=== PATIENT | male | born 1965 | race Caucasian/White ===

== ENCOUNTER 2025-03-21 14:37 | Observation (INO) | payer OTHER, SELFPAY ==
[2025-03-21] VITALS (33 sets, daily range): BP systolic 104–167; BP diastolic 69–97; PULSE 76–97; RESP 14–31; TEMP 36.8–37.9; O2SAT 91–99
--- NOTE | ~2025-03-21 | XR_ITS ---
EXAMINATION: XR chest 2V Exam Date/Time: 03/21/2025 19:05 CDT HISTORY: uri, fever Comparison: 07/20/2015. RESULT: Lines, tubes, and devices: None. Lungs and pleura: Ill-defined reticular opacities in the upper right lung. Cardiomediastinal silhouette: Stable. Other: No acute osseous or upper abdominal finding. IMPRESSION: Segmental focus of ill-defined lung right upper lung opacities, may represent infection, including at ypical variants Reviewed, dictated and finalized at location K. IMPRESSION: Segmental focus of ill-defined lung right upper lung opacities, may represent i nfection, including atypical variants
--- NOTE | 2025-03-21 19:25 | PC.NURSE ---
Report received from MARY Araiza. Assumed care of patient at this time.
[2025-03-21] MEDS: ACETAMINOPHEN 500 MG TABLET 1000 MG PO (19:39)
[2025-03-21] MEDS: SODIUM CHLORIDE 0.9% IV 1,000 ML 999 ML IV CONT ×2 (19:39→20:23)
[2025-03-21 19:46] LABS: Basophils Percent Auto 0.3 % (0.2-1.2); Hematocrit 38.1 % (42.0-52.0); Hemoglobin 12.5 g/dL (14.0-18.0); Immature Granulocyte Absolute 0.05 K/mm3 (0.00-0.031); Immature Granulocyte Percent A 0.4 % (0-0.5); Lymphocytes Percent Auto 10.7 % (18.3-44.2); Mean Corpuscular HGB Conc 32.8 g/dl (32-36); Mean Corpuscular Hemoglobin 27.3 pg (26-34); Mean Corpuscular Volume 83.2 fl (80-100); Monocytes Absolute Auto 1.4 K/mm3 (0.1-0.6); Monocytes Percent Auto 12.2 % (2.6-8.5); Neutrophils Absolute Auto 8.5 K/mm3 (1.3-6.7); Neutrophils Percent Auto 76.4 % (45.5-73.1); Platelet Count Result 255 k/mm3 (150-375); Red Blood Count 4.58 M/mm3 (4.6-6.20); Red Cell Distribution Width 12.6 % (11.5-14.5); White Blood Count 11.2 K/mm3 (4.5-10.0)
--- NOTE | 2025-03-21 19:50 | ED.GENADULT ---
HPI - General Adult General Chief complaint: Unspecified <Aleena Lu PA-C - Last Filed: 03/21/25 23:04> Stated complaint: Feeling Sick Since Sunday <HANH Lam Last Filed: 03/21/25 23:04> Time Seen by Provider: 03/21/25 18:34 <HANH Lam Last Filed: 03/21/25 23:04> Source: patient <HANH Lam Last Filed: 03/21/25 23:04> Mode of arrival: ambulatory <HANH Lam Last Filed: 03/21/25 23:04> Limitations: no limitations <HANH Lam Last Filed: 03/21/25 23:04> History of Present Illness HPI narrative: Patient is a 59-year-old male, with PMH of DM, HTN, HLD, who presents the ED with report of not feeling well. Patient reports he has not felt well over the past several days. Reports he became overheated at work on Sunday. Does report that he was drinking plenty of water and Gatorade at that time. States he has felt very weak, fatigued, overall no energy or appetite. Has had cough, congestion, rhinorrhea, intermittent fevers. Denies shortness of breath or chest pain. Denies focal numbness or weakness. Denies nausea, vomiting <HANH Lam Last Filed: 03/21/25 23:04> Related Data Home medications: Home Medications ?Medication ?Instructions ?Recorded ?Confirmed ?Last Taken ?Type dapagliflozin propanediol 10 mg 10 mg PO DAILY 03/22/25 03/22/25 Unknown History tablet (Farxiga) ergocalciferol (vitamin D2) 1,250 1,250 mcg PO WEEKLY 03/22/25 03/22/25 Unknown History mcg (50,000 unit) capsule lisinopril 20 1 tablet PO DAILY 03/22/25 03/22/25 Unknown History mg-hydrochlorothiazide 25 mg tablet rosuvastatin 10 mg tablet 10 mg PO DAILY 03/22/25 03/22/25 Unknown History sitagliptin phos 100 mg-metformin 1 tablet PO DAILY 03/22/25 03/22/25 Unknown History ER 1,000 mg tablet,extend rel 24h mp (Janumet XR) <Aleena Lu PA-C - Last Filed: 03/21/25 23:04> Allergies/adverse reactions: Allergies Allergy/AdvReac Type Severity Reaction Status Date / Time No Known Allergies Allergy Verified 03/22/25 00:15 <Aleena Lu PA-C - Last Filed: 03/21/25 23:04> Review of Systems Review of Systems: All systems reviewed & are unremarkable except as noted in HPI. <Aleena Lu PA-C - Last Filed: 03/21/25 23:04> All systems reviewed & are unremarkable except as noted in HPI and below <Aleena Lu PA-C - Last Filed: 03/21/25 23:04> [facility] Past Medical History Medical History: Medical History (Updated 03/22/25 @ 04:19 by Marcia Coles PA-C) Type 2 diabetes mellitus Dyslipidemia Hypertension <Aleena Lu PA-C - Last Filed: 03/21/25 23:04> Surgical History Surgical History: Surgical History (Updated 03/22/25 @ 04:17 by Marcia Coles PA-C) History of eye surgery corrective eye surgery at age for <Aleena Lu PA-C - Last Filed: 03/21/25 23:04> Family History Family History: Family History Sibling Diabetes mellitus Sibling Diabetes mellitus Mother Diabetes mellitus Father Colon cancer Dementia <Aleena Lu PA-C - Last Filed: 03/21/25 23:04> Social History Social History: Social History (Updated 03/22/25 @ 06:33 by Marcia Coles PA-C) Social History: Surrogate medical decision maker: Lalita Jyotsna, spouse. Code status: Full code. Smoking status: Never smoker Alcohol intake: current Drinks per week: 6 Substance use: never Do You Feel Safe in your Home?: Yes Lack of Transportation: No Lack of Food: Never True Current Housing: I Have Housing Concerned About Future Housing: No Difficulty Paying Gas/Electric Bills: No Difficulty Paying for Meds: No Currently Unemployed: No Education: High School Diploma/GED Difficulty w/ Childcare or Family Care: No Additional living arrangements comments: Lives with spouse in [place]. Additional occupation/education comments: Works for the [employer] district. Spiritual care concerns: No <Aleena Lu PA-C - Last Filed: 03/21/25 23:04> Exam Narrative: GENERAL: Appears older than stated age, obese with BMI of 34.4, non-toxic, in no acute distress. HEAD: Normocephalic, atraumatic. RESPIRATORY: Airway patent, respirations nonlabored. Clear to auscultation bilaterally, no rales, rhonchi, wheezing. No significant focal lung sounds. CARDIOVASCULAR: Regular rate and rhythm without murmurs, rubs, or gallops. ABDOMINAL: Soft, nontender, nondistended. Normoactive BS. MUSCULOSKELETAL: Moves all extremities. No gross deformities. No peripheral edema. SKIN: Warm, dry, normal color. NEURO: A&O X3. Speech clear. Cranial nerves II-XII grossly intact. Steady gait. No ataxic movements. No focal deficits. PSYCHIATRIC: Appropriate mood and affect. Normal interaction. <Aleena Lu PA-C - Last Filed: 03/21/25 23:04> Course EMBALMER ASSISTANT/PA Physician Supervision Informed this patient had been admitted. I had heard PA discuss patient directly with the admitting PA. was available for consultation while patient was in the emergency department but did not physically examine them and was not directly involved in care otherwise. <Rebecca Garcia MD - Last Filed: 03/22/25 18:23> Vital Signs Vital signs: Vital Signs Temperature 100.2 F H 03/21/25 14:51 Pulse Rate 97 03/21/25 14:51 Respiratory Rate 16 03/21/25 14:51 Blood Pressure 115/74 03/21/25 14:51 Pulse Oximetry 98 03/21/25 14:51 Oxygen Delivery Room Air 03/21/25 14:51 Temperature 99.9 F H 03/22/25 05:02 Pulse Rate 81 03/22/25 05:06 Respiratory Rate 18 03/22/25 05:06 Blood Pressure 139/76 03/22/25 05:06 Pulse Oximetry 97 03/22/25 05:06 Oxygen Delivery Room Air 03/21/25 17:46 <Aleena Lu PA-C - Last Filed: 03/21/25 23:04> Vital Signs Temperature 100.2 F H 03/21/25 14:51 Pulse Rate 97 03/21/25 14:51 Respiratory Rate 16 03/21/25 14:51 Blood Pressure 115/74 03/21/25 14:51 Pulse Oximetry 98 03/21/25 14:51 Oxygen Delivery Room Air 03/21/25 14:51 Temperature 99.9 F H 03/22/25 05:02 Pulse Rate 81 03/22/25 05:06 Respiratory Rate 18 03/22/25 05:06 Blood Pressure 139/76 03/22/25 05:06 Pulse Oximetry 97 03/22/25 05:06 Oxygen Delivery Room Air 03/21/25 17:46 <Rebecca Garcia MD - Last Filed: 03/22/25 18:23> Medical Decision Making MDM Narrative Medical decision making narrative: Patient presented to ED with fatigue, general malaise over the past several days, mild cough/URI symptoms. Patient's vitals are stable upon arrival, though he was borderline febrile. Tylenol ordered. Cbc with blood cell count of 11.2. Very mild anemia noted. No records to compare to. CMP with sodium of 132, bicarb 19, anion gap of 15. Blood sugar 200. Patient does have history of day diabetes, on per records. Fluids are ongoing. Will obtain DVT. Suspect more related to dehydration. Patient does admit to recently becoming overheated at work. CK is WNL. However kidney function is impaired. BUN 42, creatinine 2.66. No records to compare to. VBG was obtained and no acidosis. Hemoglobin A1c is markedly elevated 10.9%. UA with 3+ proteinuria/glucosuria, trace ketones. No signs of infection. Viral swabs negative. Chest x-ray with right upper lobe opacity, may represent infection. Consistent with clinical picture. Will Tx. Patient given 2 L of fluid in the ED. Repeat BMP with bicarb 21, gap closed. Creatinine only improved to 2.38. Unclear of patient's baseline, suspicious for dehydration/KARSTEN verses more chronic kidney disease. Will admit for continued hydration and monitoring. Rocephin and azithromycin ongoing for pneumonia. Discussed case with Marcia WYLIE hospitalist, accepted patient for admission. Patient and family in agreement with plan and need for admission. <Aleena Lu PA-C - Last Filed: 03/21/25 23:04> Medical Records Medical records reviewed: Yes I reviewed the external patient's medical records. <Aleena Lu PA-C - Last Filed: 03/21/25 23:04> Vital Signs Vital Signs: Vital Signs Temperature 100.2 F H 03/21/25 14:51 Pulse Rate 97 03/21/25 14:51 Respiratory Rate 16 03/21/25 14:51 Blood Pressure 115/74 03/21/25 14:51 Pulse Oximetry 98 03/21/25 14:51 Oxygen Delivery Room Air 03/21/25 14:51 Temperature 99.9 F H 03/22/25 05:02 Pulse Rate 81 03/22/25 05:06 Respiratory Rate 18 03/22/25 05:06 Blood Pressure 139/76 03/22/25 05:06 Pulse Oximetry 97 03/22/25 05:06 Oxygen Delivery Room Air 03/21/25 17:46 <Aleena Lu PA-C - Last Filed: 03/21/25 23:04> Vital Signs Temperature 100.2 F H 03/21/25 14:51 Pulse Rate 97 03/21/25 14:51 Respiratory Rate 16 03/21/25 14:51 Blood Pressure 115/74 03/21/25 14:51 Pulse Oximetry 98 03/21/25 14:51 Oxygen Delivery Room Air 03/21/25 14:51 Temperature 99.9 F H 03/22/25 05:02 Pulse Rate 81 03/22/25 05:06 Respiratory Rate 18 03/22/25 05:06 Blood Pressure 139/76 03/22/25 05:06 Pulse Oximetry 97 03/22/25 05:06 Oxygen Delivery Room Air 03/21/25 17:46 <Rebecca Garcia MD - Last Filed: 03/22/25 18:23> Lab Data Lab results reviewed: Yes I reviewed the patient's lab results. <Aleena Lu PA-C - Last Filed: 03/21/25 23:04> Result diagrams: 03/22/25 06:16 03/22/25 06:16 <Aleena Lu PA-C - Last Filed: 03/21/25 23:04> Labs: Lab Results 03/21/25 03/21/25 03/21/25 Range/Units 19:36 19:37 20:25 WBC 11.2 H (4.5-10.0) K/mm3 RBC 4.58 L (4.6-6.20) M/mm3 Hgb 12.5 L (14.0-18.0) g/dL Hct 38.1 L (42.0-52.0) % MCV 83.2 (80-100) fl MCH 27.3 (26-34) pg MCHC 32.8 (32-36) g/dl RDW 12.6 (11.5-14.5) % Plt Count 255 (150-375) k/mm3 MPV 10.0 (7.4-10.4) fl Immature Gran % (Auto) 0.4 (0-0.5) % Neut % (Auto) 76.4 H (45.5-73.1) % Lymph % (Auto) 10.7 L (18.3-44.2) % [place] % (Auto) 12.2 H (2.6-8.5) % Eos % (Auto) 0.0 (0-4.4) % Baso % (Auto) 0.3 (0.2-1.2) % Lymph # (Auto) 1.20 (0.9-3.2) K/mm3 [place] # (Auto) 1.4 H (0.1-0.6) K/mm3 Eos # (Auto) 0.0 (0-0.3) K/mm3 Baso # (Auto) 0.0 (0.0-0.1) K/mm3 Abs Immat Gran (auto) 0.05 H (0.00-0.031) K/mm3 Absolute Neuts (auto) 8.5 H (1.3-6.7) K/mm3 Absolute Nucleated RBC 0.000 (0.0-0.012) K/mm3 Nucleated RBC % 0.0 (0.0-0.2) % Sodium 132 L (137-145) mmol/L Potassium 4.2 (3.4-5.0) mmol/L Chloride 98 (98-107) mmol/L Carbon Dioxide 19 L (22-30) mmol/L Anion Gap 15 H (4-12) mmol/L BUN 42 H (9-20) mg/dL Creatinine 2.66 H (0.7-1.3) mg/dL Estim Creat Clear Calc 29 ml/min Estimated GFR 25 L (59 - ) Glucose 200 H (65-110) mg/dL Hemoglobin A1c (<5.7) % Lactic Acid 1.0 (0.7-2.0) mmol/L Calcium 9.1 (8.4-10.2) mg/dL Magnesium 2.3 (1.6-2.3) mg/dL Total Bilirubin 0.4 (0.2-1.3) mg/dL AST 54 (17-59) U/L ALT 38 (6-50) U/L Alkaline Phosphatase 174 H (38-126) U/L Total Creatine Kinase 84 (55-170) U/L Total Protein 7.9 (6.3-8.2) g/dL Albumin 4.0 (3.5-5.1) g/dL Urine Color Yellow (Yellow) Urine Appearance Clear (Clear) Urine pH 5.0 (5.0-9.0) Ur Specific [place] 1.025 (1.001-1.035) Urine Protein 3+ H (Negative) mg/dL Urine Glucose (UA) 3+ H (Negative) mg/dL Urine Ketones Trace H (Negative) mg/dL Ur Blood (Man) Negative (Negative) Urine Nitrate Negative (Negative) Urine Bilirubin Negative (Negative) Urine Urobilinogen 0.2 (<2.0) mg/dL Add Ur Microanalysis Reviewed Leukocyte Esterase Rfl Negative (Negative) AVINASH/UL Urine RBC 0-2 (0-2) /hpf Urine WBC 0-5 (0-3) /hpf Ur Squamous Epith Cells Occasional (Few) /hpf Urine Bacteria None seen /hpf Urine Casts 6-10 Influenza A (RT-PCR) Negative (Negative) Influenza B (RT-PCR) Negative (Negative) RSV (RT-PCR) Negative (Negative) SARS-CoV-2 RNA (RT-PCR) Negative (Negative) 06/28/25 06/28/25 Range/Units 20:26 22:03 WBC (4.5-10.0) K/mm3 RBC (4.6-6.20) M/mm3 Hgb (14.0-18.0) g/dL Hct (42.0-52.0) % MCV (80-100) fl MCH (26-34) pg MCHC (32-36) g/dl RDW (11.5-14.5) % Plt Count (150-375) k/mm3 MPV (7.4-10.4) fl Immature Gran % (Auto) (0-0.5) % Neut % (Auto) (45.5-73.1) % Lymph % (Auto) (18.3-44.2) % [place] % (Auto) (2.6-8.5) % Eos % (Auto) (0-4.4) % Baso % (Auto) (0.2-1.2) % Lymph # (Auto) (0.9-3.2) K/mm3 [place] # (Auto) (0.1-0.6) K/mm3 Eos # (Auto) (0-0.3) K/mm3 Baso # (Auto) (0.0-0.1) K/mm3 Abs Immat Gran (auto) (0.00-0.031) K/mm3 Absolute Neuts (auto) (1.3-6.7) K/mm3 Absolute Nucleated RBC (0.0-0.012) K/mm3 Nucleated RBC % (0.0-0.2) % Sodium 134 L (137-145) mmol/L Potassium 4.8 (3.4-5.0) mmol/L Chloride 104 (98-107) mmol/L Carbon Dioxide 21 L (22-30) mmol/L Anion Gap 9 (4-12) mmol/L BUN 40 H (9-20) mg/dL Creatinine 2.38 H (0.7-1.3) mg/dL Estim Creat Clear Calc 32 ml/min Estimated GFR 28 L (59 - ) Glucose 150 H (65-110) mg/dL Hemoglobin A1c 10.9 H (<5.7) % Lactic Acid (0.7-2.0) mmol/L Calcium 8.1 L (8.4-10.2) mg/dL Magnesium (1.6-2.3) mg/dL Total Bilirubin (0.2-1.3) mg/dL AST (17-59) U/L ALT (6-50) U/L Alkaline Phosphatase (38-126) U/L Total Creatine Kinase (55-170) U/L Total Protein (6.3-8.2) g/dL Albumin (3.5-5.1) g/dL Urine Color (Yellow) Urine Appearance (Clear) Urine pH (5.0-9.0) Ur Specific [place] (1.001-1.035) Urine Protein (Negative) mg/dL Urine Glucose (UA) (Negative) mg/dL Urine Ketones (Negative) mg/dL Ur Blood (Man) (Negative) Urine Nitrate (Negative) Urine Bilirubin (Negative) Urine Urobilinogen (<2.0) mg/dL Add Ur Microanalysis Leukocyte Esterase Rfl (Negative) AVINASH/UL Urine RBC (0-2) /hpf Urine WBC (0-3) /hpf Ur Squamous Epith Cells (Few) /hpf Urine Bacteria /hpf Urine Casts Influenza A (RT-PCR) (Negative) Influenza B (RT-PCR) (Negative) RSV (RT-PCR) (Negative) SARS-CoV-2 RNA (RT-PCR) (Negative) <Aleena Lu PA-C - Last Filed: 03/21/25 23:04> Lab Results 03/21/25 03/21/25 03/21/25 Range/Units 19:36 19:37 20:25 WBC 11.2 H (4.5-10.0) K/mm3 RBC 4.58 L (4.6-6.20) M/mm3 Hgb 12.5 L (14.0-18.0) g/dL Hct 38.1 L (42.0-52.0) % MCV 83.2 (80-100) fl MCH 27.3 (26-34) pg MCHC 32.8 (32-36) g/dl RDW 12.6 (11.5-14.5) % Plt Count 255 (150-375) k/mm3 MPV 10.0 (7.4-10.4) fl Immature Gran % (Auto) 0.4 (0-0.5) % Neut % (Auto) 76.4 H (45.5-73.1) % Lymph % (Auto) 10.7 L (18.3-44.2) % [place] % (Auto) 12.2 H (2.6-8.5) % Eos % (Auto) 0.0 (0-4.4) % Baso % (Auto) 0.3 (0.2-1.2) % Lymph # (Auto) 1.20 (0.9-3.2) K/mm3 [place] # (Auto) 1.4 H (0.1-0.6) K/mm3 Eos # (Auto) 0.0 (0-0.3) K/mm3 Baso # (Auto) 0.0 (0.0-0.1) K/mm3 Abs Immat Gran (auto) 0.05 H (0.00-0.031) K/mm3 Absolute Neuts (auto) 8.5 H (1.3-6.7) K/mm3 Absolute Nucleated RBC 0.000 (0.0-0.012) K/mm3 Nucleated RBC % 0.0 (0.0-0.2) % Sodium 132 L (137-145) mmol/L Potassium 4.2 (3.4-5.0) mmol/L Chloride 98 (98-107) mmol/L Carbon Dioxide 19 L (22-30) mmol/L Anion Gap 15 H (4-12) mmol/L BUN 42 H (9-20) mg/dL Creatinine 2.66 H (0.7-1.3) mg/dL Estim Creat Clear Calc 29 ml/min Estimated GFR 25 L (59 - ) Glucose 200 H (65-110) mg/dL Hemoglobin A1c (<5.7) % Lactic Acid 1.0 (0.7-2.0) mmol/L Calcium 9.1 (8.4-10.2) mg/dL Magnesium 2.3 (1.6-2.3) mg/dL Total Bilirubin 0.4 (0.2-1.3) mg/dL AST 54 (17-59) U/L ALT 38 (6-50) U/L Alkaline Phosphatase 174 H (38-126) U/L Total Creatine Kinase 84 (55-170) U/L Total Protein 7.9 (6.3-8.2) g/dL Albumin 4.0 (3.5-5.1) g/dL Urine Color Yellow (Yellow) Urine Appearance Clear (Clear) Urine pH 5.0 (5.0-9.0) Ur Specific [place] 1.025 (1.001-1.035) Urine Protein 3+ H (Negative) mg/dL Urine Glucose (UA) 3+ H (Negative) mg/dL Urine Ketones Trace H (Negative) mg/dL Ur Blood (Man) Negative (Negative) Urine Nitrate Negative (Negative) Urine Bilirubin Negative (Negative) Urine Urobilinogen 0.2 (<2.0) mg/dL Add Ur Microanalysis Reviewed Leukocyte Esterase Rfl Negative (Negative) AVINASH/UL Urine RBC 0-2 (0-2) /hpf Urine WBC 0-5 (0-3) /hpf Ur Squamous Epith Cells Occasional (Few) /hpf Urine Bacteria None seen /hpf Urine Casts 6-10 Influenza A (RT-PCR) Negative (Negative) Influenza B (RT-PCR) Negative (Negative) RSV (RT-PCR) Negative (Negative) SARS-CoV-2 RNA (RT-PCR) Negative (Negative) 03/21/25 03/21/25 Range/Units 20:26 22:03 WBC (4.5-10.0) K/mm3 RBC (4.6-6.20) M/mm3 Hgb (14.0-18.0) g/dL Hct (42.0-52.0) % MCV (80-100) fl MCH (26-34) pg MCHC (32-36) g/dl RDW (11.5-14.5) % Plt Count (150-375) k/mm3 MPV (7.4-10.4) fl Immature Gran % (Auto) (0-0.5) % Neut % (Auto) (45.5-73.1) % Lymph % (Auto) (18.3-44.2) % [place] % (Auto) (2.6-8.5) % Eos % (Auto) (0-4.4) % Baso % (Auto) (0.2-1.2) % Lymph # (Auto) (0.9-3.2) K/mm3 [place] # (Auto) (0.1-0.6) K/mm3 Eos # (Auto) (0-0.3) K/mm3 Baso # (Auto) (0.0-0.1) K/mm3 Abs Immat Gran (auto) (0.00-0.031) K/mm3 Absolute Neuts (auto) (1.3-6.7) K/mm3 Absolute Nucleated RBC (0.0-0.012) K/mm3 Nucleated RBC % (0.0-0.2) % Sodium 134 L (137-145) mmol/L Potassium 4.8 (3.4-5.0) mmol/L Chloride 104 (98-107) mmol/L Carbon Dioxide 21 L (22-30) mmol/L Anion Gap 9 (4-12) mmol/L BUN 40 H (9-20) mg/dL Creatinine 2.38 H (0.7-1.3) mg/dL Estim Creat Clear Calc 32 ml/min Estimated GFR 28 L (59 - ) Glucose 150 H (65-110) mg/dL Hemoglobin A1c 10.9 H (<5.7) % Lactic Acid (0.7-2.0) mmol/L Calcium 8.1 L (8.4-10.2) mg/dL Magnesium (1.6-2.3) mg/dL Total Bilirubin (0.2-1.3) mg/dL AST (17-59) U/L ALT (6-50) U/L Alkaline Phosphatase (38-126) U/L Total Creatine Kinase (55-170) U/L Total Protein (6.3-8.2) g/dL Albumin (3.5-5.1) g/dL Urine Color (Yellow) Urine Appearance (Clear) Urine pH (5.0-9.0) Ur Specific [place] (1.001-1.035) Urine Protein (Negative) mg/dL Urine Glucose (UA) (Negative) mg/dL Urine Ketones (Negative) mg/dL Ur Blood (Man) (Negative) Urine Nitrate (Negative) Urine Bilirubin (Negative) Urine Urobilinogen (<2.0) mg/dL Add Ur Microanalysis Leukocyte Esterase Rfl (Negative) AVINASH/UL Urine RBC (0-2) /hpf Urine WBC (0-3) /hpf Ur Squamous Epith Cells (Few) /hpf Urine Bacteria /hpf Urine Casts Influenza A (RT-PCR) (Negative) Influenza B (RT-PCR) (Negative) RSV (RT-PCR) (Negative) SARS-CoV-2 RNA (RT-PCR) (Negative) <Rebecca Garcia MD - Last Filed: 03/22/25 18:23> ABG Data ABG results: 03/21/25 20:26 VBG pH 7.363 VBG pCO2 38.6 L VBG pO2 27.5 L VBG HCO3 21.5 L O2 Delivery Device Room air O2 Liters/Min Not Reportable FiO2 21 <Aleena Lu PA-C - Last Filed: 03/21/25 23:04> 03/21/25 20:26 VBG pH 7.363 VBG pCO2 38.6 L VBG pO2 27.5 L VBG HCO3 21.5 L O2 Delivery Device Room air O2 Liters/Min Not Reportable FiO2 21 <Rebecca Garcia MD - Last Filed: 03/22/25 18:23> Attestation: I personally reviewed and interpreted this ABG as follows: <Aleena Lu PA-C - Last Filed: 03/21/25 23:04> Imaging Data Attestation: I personally reviewed and interpreted this imaging study as follows: <Aleena Lu PA-C - Last Filed: 03/21/25 23:04> Radiologist's impression: ITS Impressions Chest X-Ray 03/21/25 19:16 IMPRESSION: Segmental focus of ill-defined lung right upper lung opacities, may represent infection, including atypical variants <Aleena Lu PA-C - Last Filed: 03/21/25 23:04> Discharge Plan Discharge Clinical Impression: Dehydration, KARSTEN (acute kidney injury) Pneumonia Qualifiers: Pneumonia type: due to unspecified organism Laterality: right Lung location: upper lobe of lung Qualified Code(s): J18.9 - Pneumonia, unspecified organism Uncontrolled diabetes mellitus Qualifiers: Diabetes mellitus type: type 2 Glycemic state: with hyperglycemia Qualified Code(s): E11.65 - Type 2 diabetes mellitus with hyperglycemia <HANH Lam Last Filed: 03/21/25 23:04> Patient Disposition: Still a Patient <Aleena Lu PA-C - Last Filed: 03/21/25 23:04> Condition: Stable <Aleena Lu PA-C - Last Filed: 03/21/25 23:04>
[2025-03-21 19:58] LABS: Alanine Aminotransferase 38 U/L (6-50); Alkaline Phosphatase 174 U/L (38-126); Anion Gap 15 mmol/L (4-12); Aspartate Amino Transferase 54 U/L (17-59); Bilirubin,Total 0.4 mg/dL (0.2-1.3); Blood Urea Nitrogen 42 mg/dL (9-20); Calcium 9.1 mg/dL (8.4-10.2); Carbon Dioxide 19 mmol/L (22-30); Chloride 98 mmol/L (98-107); Estimated CRCL calculation 29 ml/min; Estimated Glomerular Filt Rate 25; Glucose 200 mg/dL (65-110); Potassium 4.2 mmol/L (3.4-5.0); Sodium 132 mmol/L (137-145); Total Protein 7.9 g/dL (6.3-8.2)
[2025-03-21 19:59] LABS: Add Urine Microscopic? YES; Appearance Urine Clear (Clear); Bacteria Urine None Seen /hpf; Bilirubin Urine Negative (Negative); Blood Urine Negative (Negative); Color Urine Yellow (Yellow); Glucose Urine UA 3+ mg/dL (Negative); Ketones Urine Trace mg/dL (Negative); Leukocyte Esterase Ur Negative LEU/UL (Negative); Need Manual Microscopic Reviewed; Nitrate Urine Negative (Negative); Protein Urine 3+ mg/dL (Negative); RBC Urine 0-2 /hpf (0-2); Specific Grav Ur 1.025 (1.001-1.035); Squamous Epithelial Cell Urine Occasional /hpf (Few); Urobilinogen Urine 0.2 mg/dL (<2.0); WBC Urine 0-5 /hpf (0-3)
[2025-03-21 19:59] LABS: Creatine Kinase 84 U/L (55-170)
[2025-03-21 20:23] LABS: Influenza A QL RT-PCR Negative (Negative); Influenza B QL RT-PCR Negative (Negative); RSV RNA, RT-PCR. Negative (Negative); SARS-CoV-2 RNA PCR Negative (Negative)
[2025-03-21 20:29] LABS: Fractional Inspired Oxygen 21 %; HCO3 VBG 21.5 mEq/l (24.0-30.0); PCO2 VBG 38.6 mmHg (42.0-48.0); PO2 VBG 27.5 mmHg (35.0-45.0); pH VBG 7.363 (7.300-7.400)
[2025-03-21 20:31] LABS: Device ROOM AIR
[2025-03-21 20:33] LABS: Magnesium 2.3 mg/dL (1.6-2.3)
[2025-03-21 20:43] LABS: Hemoglobin A1C. 10.9 % (<5.7)
[2025-03-21 22:21] LABS: Anion Gap 9 mmol/L (4-12); Blood Urea Nitrogen 40 mg/dL (9-20); Calcium 8.1 mg/dL (8.4-10.2); Carbon Dioxide 21 mmol/L (22-30); Chloride 104 mmol/L (98-107); Estimated CRCL calculation 32 ml/min; Estimated Glomerular Filt Rate 28; Glucose 150 mg/dL (65-110); Potassium 4.8 mmol/L (3.4-5.0); Sodium 134 mmol/L (137-145)
--- NOTE | 2025-03-21 22:51 | PC.NURSE ---
Asked pt. if he could try to urinate and pt. stated he could not go and refused to try. Pt. was then bladder scanned and had a significant amount of urine in his bladder.
[2025-03-21] MEDS: AZITHROMYCIN 500 MG/NS 250 ML 500 MG/250 ML BAG 250 MG IVPB (23:32)
[2025-03-22 00:02] VITALS: BP 126/79; PULSE 80; RESP 18; TEMP 36.8; O2SAT 99
[2025-03-22 00:16] VITALS: BMI 33.0
[2025-03-22] MEDS: SODIUM CHLORIDE 0.9% IV 1,000 ML 100 ML IV CONT (00:51)
--- NOTE | 2025-03-22 04:00 | PM.IMHP ---
H&P: HPI History of Present Illness Date/Time: 03/22/25 03:00 Chief Complaint: Not feeling well for 3 days. Narrative: This is a pleasant 59-year-old male with hypertension, hyperlipidemia, and type 2 diabetes mellitus who presented to the emergency department via private vehicle with complaints of not feeling well for 3 days. His symptoms include subjective fever, cough which has not really been productive, chest congestion, runny nose, fatigue, decreased energy, generalized weakness, and poor appetite. 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 He tries to stay hydrated while working thinks he drinks plenty of water and Gatorade. He denies sick contacts. No headache, neck ache, chest pain, shortness of breath, vomiting, diarrhea, dysuria, or decrease in urine output. In the ED: Vital signs on arrival include a temperature of 100.2? F, blood pressure 115/74, pulse 97, respiratory rate 16, SpO2 98% on room air. Labs were significant for WBC count of 11.2, hemoglobin 12.5, sodium 132, carbon dioxide 19, anion gap 15, BUN 42, creatinine 2.66, glucose 200, total CK 84. Urinalysis was positive for 3+ protein, 3+ glucose, and trace ketones. He tested negative for influenza, RSV, and COVID. Chest x-ray showed segmental focus of ill-defined right upper lung opacities which may represent infection. He received 2 L normal saline bolus and was started on azithromycin and ceftriaxone. He is being admitted in this setting for further treatment of possible acute kidney injury (he thinks he may have mild chronic kidney disease but is uncertain). Review of Systems Review of Systems: 12 systems were reviewed and are negative except for as per HPI. [facility] Past Medical History Medical History (Updated 03/22/25 @ 04:19 by Marcia Coles PA-C) Type 2 diabetes mellitus Dyslipidemia Hypertension Surgical History Surgical History (Updated 03/22/25 @ 04:17 by Marcia Coles PA-C) History of eye surgery corrective eye surgery at age for Family History Family History Sibling Diabetes mellitus Sibling Diabetes mellitus Mother Diabetes mellitus Father Colon cancer Dementia Social History Social History (Updated 03/22/25 @ 06:33 by Marcia Coles PA-C) Social History: Surrogate medical decision maker: Lalita Goyal, spouse. Code status: Full code. Smoking status: Never smoker Alcohol intake: current Drinks per week: 6 Substance use: never Do You Feel Safe in your Home?: Yes Lack of Transportation: No Lack of Food: Never True Current Housing: I Have Housing Concerned About Future Housing: No Difficulty Paying Gas/Electric Bills: No Difficulty Paying for Meds: No Currently Unemployed: No Education: High School Diploma/GED Difficulty w/ Childcare or Family Care: No Additional living arrangements comments: Lives with spouse in [place]. Additional occupation/education comments: Works for the [employer] district. Spiritual care concerns: No Meds Home Medications and Allergies Home Medications ?Medication ?Instructions ?Recorded ?Confirmed ?Type dapagliflozin propanediol 10 mg 10 mg PO DAILY 03/22/25 03/22/25 History tablet (Farxiga) ergocalciferol (vitamin D2) 1,250 1,250 mcg PO WEEKLY 03/22/25 03/22/25 History mcg (50,000 unit) capsule lisinopril 20 1 tablet PO DAILY 03/22/25 03/22/25 History mg-hydrochlorothiazide 25 mg tablet rosuvastatin 10 mg tablet 10 mg PO DAILY 03/22/25 03/22/25 History sitagliptin phos 100 mg-metformin 1 tablet PO DAILY 03/22/25 03/22/25 History ER 1,000 mg tablet,extend rel 24h mp (Janumet XR) Allergies Allergy/AdvReac Type Severity Reaction Status Date / Time No Known Allergies Allergy Verified 03/22/25 00:15 Vital Signs Vital Signs - 24 hr 03/21/25 14:51 03/21/25 17:46 03/21/25 17:48 Temperature 100.2 F H Pulse Rate 97 90 89 Respiratory Rate 16 15 Blood Pressure 115/74 116/76 Pulse Oximetry 98 98 Oxygen Delivery Room Air Room Air 03/21/25 17:48 03/21/25 19:00 03/21/25 19:01 Temperature Pulse Rate 85 85 Respiratory Rate 18 25 H 28 H Blood Pressure 104/76 Pulse Oximetry 96 96 94 Oxygen Delivery 03/21/25 19:15 03/21/25 19:34 03/21/25 19:37 Temperature 98.3 F Pulse Rate 87 93 87 Respiratory Rate 29 H 23 H 17 Blood Pressure Pulse Oximetry 91 97 98 Oxygen Delivery 03/21/25 19:40 03/21/25 19:40 03/21/25 19:45 Temperature Pulse Rate 87 86 Respiratory Rate 20 22 H Blood Pressure 130/71 130/71 Pulse Oximetry 96 97 Oxygen Delivery 03/21/25 20:00 03/21/25 20:01 03/21/25 20:15 Temperature Pulse Rate 89 88 86 Respiratory Rate 25 H 28 H 23 H Blood Pressure 167/97 H Pulse Oximetry 99 99 97 Oxygen Delivery 03/21/25 20:30 03/21/25 20:31 03/21/25 20:45 Temperature Pulse Rate 85 88 93 Respiratory Rate 27 H 23 H 25 H Blood Pressure 158/90 H Pulse Oximetry 96 96 93 Oxygen Delivery 03/21/25 21:00 03/21/25 21:01 03/21/25 21:15 Temperature Pulse Rate 85 86 87 Respiratory Rate 29 H 24 H 20 Blood Pressure 166/89 H Pulse Oximetry 95 94 97 Oxygen Delivery 03/21/25 21:30 03/21/25 21:45 03/21/25 22:00 Temperature Pulse Rate 81 83 81 Respiratory Rate 27 H 28 H 31 H Blood Pressure Pulse Oximetry 97 97 Oxygen Delivery 03/21/25 22:15 03/21/25 22:30 03/21/25 22:31 Temperature Pulse Rate 80 80 82 Respiratory Rate 26 H 22 H 21 H Blood Pressure 140/71 Pulse Oximetry 97 97 96 Oxygen Delivery 03/21/25 22:45 03/21/25 23:00 03/21/25 23:01 Temperature Pulse Rate 80 77 81 Respiratory Rate 24 H 23 H 26 H Blood Pressure 131/79 Pulse Oximetry 97 96 96 Oxygen Delivery 03/21/25 23:15 03/21/25 23:30 03/21/25 23:31 Temperature Pulse Rate 79 76 79 Respiratory Rate 14 17 24 H Blood Pressure 124/69 Pulse Oximetry 97 97 98 Oxygen Delivery 03/21/25 23:45 03/21/25 23:47 03/22/25 00:02 Temperature 98.2 F Pulse Rate 78 77 80 Respiratory Rate 22 H 18 18 Blood Pressure 124/76 126/79 Pulse Oximetry 97 96 99 Oxygen Delivery Exam Narrative: General: Mildly ill-appearing male in the semi-[place] position in bed. Weight: 88.1 kg. BMI: 33.3. HEENT: PERRL, EOMI. Sclera anicteric. Conjunctiva mildly injected. Tacky mucous membranes. Neck: Supple. Respiratory: Respirations are nonlabored and lungs are clear to auscultation. Scattered rhonchi noted on the right. Cardiovascular: Regular rate and rhythm with S1-S2. Gastrointestinal: Abdomen is soft, nontender, and nondistended with positive bowel sounds. Skin: Warm and dry. No rash or lesions on limited exam. Extremities: No cyanosis, clubbing, or edema. Radial and pedal pulses intact. Neurological: Alert. Cranial nerves grossly intact. No gross focal deficits to casual conversation. Psychiatric: Pleasant and cooperative with appropriate mood and affect. H&P: Results Labs Labs: Short CBC 03/21/25 Range/Units 19:36 WBC 11.2 H (4.5-10.0) K/mm3 Hgb 12.5 L (14.0-18.0) g/dL Hct 38.1 L (42.0-52.0) % Plt Count 255 (150-375) k/mm3 BMP 03/21/25 03/21/25 19:36 22:03 Sodium 132 L 134 L Potassium 4.2 4.8 Chloride 98 104 Carbon Dioxide 19 L 21 L BUN 42 H 40 H Creatinine 2.66 H 2.38 H Glucose 200 H 150 H Calcium 9.1 8.1 L Cardiac Enzymes 03/21/25 Range/Units 19:36 Total Creatine Kinase 84 (55-170) U/L Liver Function 03/21/25 Range/Units 19:36 Total Bilirubin 0.4 (0.2-1.3) mg/dL AST 54 (17-59) U/L ALT 38 (6-50) U/L Alkaline Phosphatase 174 H (38-126) U/L Albumin 4.0 (3.5-5.1) g/dL Urine 03/21/25 Range/Units 19:37 Urine Color Yellow (Yellow) Urine Appearance Clear (Clear) Urine pH 5.0 (5.0-9.0) Ur Specific [place] 1.025 (1.001-1.035) Urine Protein 3+ H (Negative) mg/dL Urine Glucose (UA) 3+ H (Negative) mg/dL Imaging Chest X-Ray 03/21/25 19:16 IMPRESSION: Segmental focus of ill-defined lung right upper lung opacities, may represent infection, including atypical variants. Assessment and Plan Assessment and plan (1) Pneumonia: Qualifiers: Laterality: right Lung location: upper lobe of lung Pneumonia type: due to unspecified organism Qualified Code(s): J18.9 - Pneumonia, unspecified organism Code(s): J18.9 - Pneumonia, unspecified organism Status: Acute (2) Acute kidney injury: Code(s): N17.9 - Acute kidney failure, unspecified Status: Acute (3) Dehydration: Code(s): E86.0 - Dehydration Status: Acute (4) Type 2 diabetes mellitus: Code(s): E11.9 - Type 2 diabetes mellitus without complications Status: Acute (5) Hypertension: Code(s): I10 - Essential (primary) hypertension Status: Acute Plan The patient presented to the emergency department for evaluation of fever, cough, malaise, and poor appetite since Sunday as detailed in HPI. Labs, imaging, EKG, and all reports were personally reviewed. Preliminary workup was significant for low-grade fever, leukocytosis with a WBC count of 11.2, and a chest x-ray showing findings of probable pneumonia in the right lung. He has been started on azithromycin and ceftriaxone. Attempt sputum for culture. He also has a presumed acute kidney injury however I wonder if he may have underlying chronic kidney disease given his comorbidities. He does look dry on exam and by history and we will continue with judicious IV fluid rehydration. Renal ultrasound has been ordered for a.m.. For now we will hold lisinopril and hydrochlorothiazide. Initial chemistries showed an increased anion gap of 15 with a serum carbon dioxide of 19 and urine demonstrated trace ketones. VBG showed a normal pH and following 2 L of normal saline, his anion gap has closed. His diabetes is poorly controlled with hemoglobin A1c of 10.9%; he does not check his glucose at home and we did discuss the importance of keeping his diabetes under control and the complications he can expect should his diabetes go uncontrolled. Continue sitagliptin-metformin and dapagliflozin and initiate sliding scale insulin, Accu-Cheks, and hypoglycemic protocol. His blood pressures were reviewed and they have been well controlled aside from a few readings that were in the 160s systolic, possibly erroneous. His home medications will be reviewed and resumed as appropriate. Findings and treatment plan were discussed with the patient. Questions were solicited and answered to satisfaction. The patient's medical management will be taken over by the hospitalist team in a.m. Quality VTE Prophylaxis VTE prophylaxis: pharmacologic ordered The patient has been admitted under observation status. Hospitalist MIPS Advance Care Plan I have confirmed that the patient's Advanced Care Plan is present, code status is documented, or surrogate decision maker is listed in patient medical record.: Yes Medication Reconciliation I have utilized all available resources to obtain, update and review the patients current medications (includes all prescriptions, OTC, herbals, cannabis, and nutritional supplements).: Yes
[2025-03-22 05:02] VITALS: BP 150/84; PULSE 83; RESP 16; TEMP 37.7; O2SAT 98
[2025-03-22 05:04] VITALS: BP 144/87; PULSE 84; RESP 16; O2SAT 94
[2025-03-22 05:06] VITALS: BP 139/76; PULSE 81; RESP 18; O2SAT 97
[2025-03-22 06:57] LABS: Hematocrit 35.2 % (42.0-52.0); Hemoglobin 11.4 g/dL (14.0-18.0); Mean Corpuscular HGB Conc 32.4 g/dl (32-36); Mean Corpuscular Hemoglobin 27.7 pg (26-34); Mean Corpuscular Volume 85.6 fl (80-100); Mean Platelet Volume 10.2 fl (7.4-10.4); Platelet Count Result 226 k/mm3 (150-375); Red Blood Count 4.11 M/mm3 (4.6-6.20); Red Cell Distribution Width 12.7 % (11.5-14.5); White Blood Count 7.2 K/mm3 (4.5-10.0)
[2025-03-22 07:08] LABS: Anion Gap 9 mmol/L (4-12); Blood Urea Nitrogen 38 mg/dL (9-20); Calcium 8.3 mg/dL (8.4-10.2); Carbon Dioxide 21 mmol/L (22-30); Chloride 105 mmol/L (98-107); Estimated CRCL calculation 36 ml/min; Estimated Glomerular Filt Rate 34; Glucose 142 mg/dL (65-110); Magnesium 2.3 mg/dL (1.6-2.3); Potassium 4.5 mmol/L (3.4-5.0); Sodium 135 mmol/L (137-145)
[2025-03-22 07:58] LABS: Thyroid Stimulating Hormone Reflex 0.956 uIU/mL (0.465-4.68)
[2025-03-22 08:05] LABS: MRSA (PCR) NOT DETECTED (NOT DETECTE)
[2025-03-22 08:20] LABS: Glucose Point of Care 119 mg/dl (65-105)
[2025-03-22] MEDS: guaiFENesin 12 HR 600 MG TABCR 1200 MG PO (10:26)
[2025-03-22] MEDS: metFORMIN HCL XR 500 MG TAB.SR.24H 1000 MG PO (10:26)
[2025-03-22] MEDS: ROSUVASTATIN 10 MG TABLET PO (10:26)
[2025-03-22] MEDS: SITagliptin PHOSPHATE 100 MG TABLET PO (10:27)
[2025-03-22] MEDS: EMPAGLIFLOZIN 25 MG TABLET BY MOUTH (10:27)
--- NOTE | 2025-03-22 10:50 | PM.DS ---
DS: Admitting Diagnosis Discharge Date 03/22/2025 Admitting Diagnosis Community-acquired pneumonia DS: Discharge Diagnosis Discharge Diagnosis (1) Pneumonia: Qualifiers: Laterality: right Lung location: upper lobe of lung Pneumonia type: due to unspecified organism Qualified Code(s): J18.9 - Pneumonia, unspecified organism Code(s): J18.9 - Pneumonia, unspecified organism Status: Acute Assessment and Plan: Right lung pneumonia noted on CXR. Patient was treated with IV ceftriaxone and azithromycin with improvement in symptoms. Mild leukocytosis resolved. Nasal MRSA negative. Urine Legionella, mycoplasma, pneumococcal antigens are pending at time of discharge. Will continue course of cefdinir and azithromycin as an outpatient. Reviewed supportive care measures. (2) Acute kidney injury: Code(s): N17.9 - Acute kidney failure, unspecified Status: Acute Assessment and Plan: Creatinine 2.66 on presentation. [place] to be related to dehydration. Suspect acute on chronic kidney injury, however no prior labs are available for baseline. Given his poorly controlled type 2 diabetes mellitus and other risk factors, it is suspected that he has some degree of CKD. Creatinine did improve during admission with IV fluids and holding nephrotoxic medications. Creatinine down to 2.05 at time of discharge. He will have prompt follow-up with his PCP for repeat lab work in comparison to outpatient labs for baseline. Renal ultrasound was ordered during admission, however patient opted not to remain hospitalized while awaiting completion of this evaluation. This can be completed as an outpatient if indicated based on review of prior labs and repeat labs. (3) Dehydration: Code(s): E86.0 - Dehydration Status: Acute Assessment and Plan: Rehydrated with IV fluids during admission with overall improvement. Discussed at length importance of maintaining adequate oral hydration, especially with heat and working outdoors (4) Type 2 diabetes mellitus: Code(s): E11.9 - Type 2 diabetes mellitus without complications Status: Acute Assessment and Plan: Poorly controlled. He is not consistent with monitoring blood sugars. A1c is 10.9. Continue home Janumet and Farxiga. Discussed importance of monitoring blood sugar trends closely as well as close follow-up with PCP for continued glucose management. (5) Hypertension: Code(s): I10 - Essential (primary) hypertension Status: Acute Assessment and Plan: Blood pressuress well controlled during his admission. His home lisinopril-hydrochlorothiazide was held due to acute kidney injury. We had a long discussion regarding blood pressure management in setting of KARSTEN/suspected CKD. As his BP was controlled off medications, we will continue to hold lisinopril-hydrochlorothiazide until repeat BMP is completed and he has follow-up with PCP. May need to consider alternative antihypertensive regimen. While awaiting appropriate follow-up, he has been instructed to monitor his blood pressures daily at home and call his PCP for update. Reviewed normal BP range and need to seek care if BP becomes elevated. DS: Summary Hospital Course Reason for hospitalization: Pneumonia Hospital Course: Tej stanley is a 59-year-old male with a history of poorly controlled type 2 diabetes mellitus, hypertension, and dyslipidemia who presented to the emergency department on 03/21/2025 as he had been feeling poorly for 3 days with weakness and fatigue. 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 Upon arrival, he had slightly elevated temperature at 100.2?, additional vital signs were stable, WBC was mildly elevated at 11.2, creatinine was elevated at 2.38 and BUN 40. Lactic within normal limits. He had negative COVID, RSV, and influenza swab. His A1c was found to be elevated at 10.9. CXR was completed which showed segmental focus of ill-defined right upper lung opacities. He was admitted to the hospitalist service for further evaluation and management. Please see above for further details. He was treated with antibiotics for pneumonia and had overall improvement. His renal function improved with IV hydration. His mild leukocytosis resolved. He was feeling back to his usual state of health and was eager for discharge home. Discussed with patient and his regarding discharge plans and need for further follow-up. Please see follow-up plans as described above. We reviewed worrisome signs and symptoms for which to seek care. He was discharged in hemodynamically stable condition on 03/22/2025. Status at Discharge Functional status at discharge: independent ambulation Time Spent with Patient Time attestation: Total time spent providing and/or coordinating discharge services: Time spent: Greater than 30 minutes Exam Narrative: Neuro: awake, alert and oriented x4, speech clear, no focal neuro deficits noted HEENMT: normocephalic, atraumatic, EOMI, sclerae anicteric, moist oral mucosa Neck: supple, no lymphadenopathy Respiratory: clear to auscultation bilaterally, nonlabored breathing Cardio: regular rate, regular rhythm with S1-S2 Abdomen: nondistended, normoactive bowel sounds, soft, nontender to palpation Extremities: no edema, erythema, cyanosis, or tenderness to palpation, DP pulses 2+ bilaterally Skin: no rashes or lesions, warm and dry Psych: appropriate mood and affect, judgment and insight intact DS: Data Data Completed and Pending Labs on day of discharge: Labs from last 24 hours 03/22/25 03/22/25 03/22/25 08:02 06:37 06:16 WBC 7.2 RBC 4.11 L Hgb 11.4 L Hct 35.2 L MCV 85.6 MCH 27.7 MCHC 32.4 RDW 12.7 Plt Count 226 MPV 10.2 Immature Gran % (Auto) Neut % (Auto) Lymph % (Auto) [place] % (Auto) Eos % (Auto) Baso % (Auto) Lymph # (Auto) [place] # (Auto) Eos # (Auto) Baso # (Auto) Abs Immat Gran (auto) Absolute Neuts (auto) Absolute Nucleated RBC Nucleated RBC % VBG pH VBG pCO2 VBG pO2 VBG HCO3 O2 Delivery Device O2 Liters/Min FiO2 Sodium 135 L Potassium 4.5 Chloride 105 Carbon Dioxide 21 L Anion Gap 9 BUN 38 H Creatinine 2.05 H Estim Creat Clear Calc 36 Estimated GFR 34 L Glucose 142 H POC Capillary Glucose 119 H Hemoglobin A1c Lactic Acid Calcium 8.3 L Magnesium 2.3 Total Bilirubin AST ALT Alkaline Phosphatase Total Creatine Kinase Total Protein Albumin TSH (Reflex) 0.956 Urine Color Urine Appearance Urine pH Ur Specific [place] Urine Protein Urine Glucose (UA) Urine Ketones Ur Blood (Man) Urine Nitrate Urine Bilirubin Urine Urobilinogen Add Ur Microanalysis Leukocyte Esterase Rfl Urine RBC Urine WBC Ur Squamous Epith Cells Urine Bacteria Urine Casts Nasal MRSA (PCR) Not detected Influenza A (RT-PCR) Influenza B (RT-PCR) Ur L.pneumophila Ag Mycoplasma pneumon IgM Pending RSV (RT-PCR) SARS-CoV-2 RNA (RT-PCR) Urine Pneumococcal Ag 03/22/25 03/21/25 03/21/25 05:18 22:03 20:26 WBC RBC Hgb Hct MCV MCH MCHC RDW Plt Count MPV Immature Gran % (Auto) Neut % (Auto) Lymph % (Auto) [place] % (Auto) Eos % (Auto) Baso % (Auto) Lymph # (Auto) [place] # (Auto) Eos # (Auto) Baso # (Auto) Abs Immat Gran (auto) Absolute Neuts (auto) Absolute Nucleated RBC Nucleated RBC % VBG pH 7.363 VBG pCO2 38.6 L VBG pO2 27.5 L VBG HCO3 21.5 L O2 Delivery Device Room air O2 Liters/Min Not Reportable FiO2 21 Sodium 134 L Potassium 4.8 Chloride 104 Carbon Dioxide 21 L Anion Gap 9 BUN 40 H Creatinine 2.38 H Estim Creat Clear Calc 32 Estimated GFR 28 L Glucose 150 H POC Capillary Glucose Hemoglobin A1c 10.9 H Lactic Acid Calcium 8.1 L Magnesium Total Bilirubin AST ALT Alkaline Phosphatase Total Creatine Kinase Total Protein Albumin TSH (Reflex) Urine Color Urine Appearance Urine pH Ur Specific [place] Urine Protein Urine Glucose (UA) Urine Ketones Ur Blood (Man) Urine Nitrate Urine Bilirubin Urine Urobilinogen Add Ur Microanalysis Leukocyte Esterase Rfl Urine RBC Urine WBC Ur Squamous Epith Cells Urine Bacteria Urine Casts Nasal MRSA (PCR) Influenza A (RT-PCR) Influenza B (RT-PCR) Ur L.pneumophila Ag Pending Mycoplasma pneumon IgM RSV (RT-PCR) SARS-CoV-2 RNA (RT-PCR) Urine Pneumococcal Ag Pending 03/21/25 03/21/25 03/21/25 20:25 19:37 19:36 WBC 11.2 H RBC 4.58 L Hgb 12.5 L Hct 38.1 L MCV 83.2 MCH 27.3 MCHC 32.8 RDW 12.6 Plt Count 255 MPV 10.0 Immature Gran % (Auto) 0.4 Neut % (Auto) 76.4 H Lymph % (Auto) 10.7 L [place] % (Auto) 12.2 H Eos % (Auto) 0.0 Baso % (Auto) 0.3 Lymph # (Auto) 1.20 [place] # (Auto) 1.4 H Eos # (Auto) 0.0 Baso # (Auto) 0.0 Abs Immat Gran (auto) 0.05 H Absolute Neuts (auto) 8.5 H Absolute Nucleated RBC 0.000 Nucleated RBC % 0.0 VBG pH VBG pCO2 VBG pO2 VBG HCO3 O2 Delivery Device O2 Liters/Min FiO2 Sodium 132 L Potassium 4.2 Chloride 98 Carbon Dioxide 19 L Anion Gap 15 H BUN 42 H Creatinine 2.66 H Estim Creat Clear Calc 29 Estimated GFR 25 L Glucose 200 H POC Capillary Glucose Hemoglobin A1c Lactic Acid 1.0 Calcium 9.1 Magnesium 2.3 Total Bilirubin 0.4 AST 54 ALT 38 Alkaline Phosphatase 174 H Total Creatine Kinase 84 Total Protein 7.9 Albumin 4.0 TSH (Reflex) Urine Color Yellow Urine Appearance Clear Urine pH 5.0 Ur Specific [place] 1.025 Urine Protein 3+ H Urine Glucose (UA) 3+ H Urine Ketones Trace H Ur Blood (Man) Negative Urine Nitrate Negative Urine Bilirubin Negative Urine Urobilinogen 0.2 Add Ur Microanalysis Reviewed Leukocyte Esterase Rfl Negative Urine RBC 0-2 Urine WBC 0-5 Ur Squamous Epith Cells Occasional Urine Bacteria None seen Urine Casts 6-10 Nasal MRSA (PCR) Influenza A (RT-PCR) Negative Influenza B (RT-PCR) Negative Ur L.pneumophila Ag Mycoplasma pneumon IgM RSV (RT-PCR) Negative SARS-CoV-2 RNA (RT-PCR) Negative Urine Pneumococcal Ag Imaging Radiologist's impression: ITS Impressions Chest X-Ray 03/21/25 19:16 IMPRESSION: Segmental focus of ill-defined lung right upper lung opacities, may represent infection, including atypical variants Discharge Plan Discharge Attending physician on discharge: Linden Pierre Discharging Clinician: Leeann Velasco Patient Disposition: Home Activity: as tolerated Diet: regular Discharge Instructions: Hospitalist discharge instructions: You have been hospitalized for pneumonia. you have been treated with IV antibiotics and will continue taking antibiotics at home (see below). call your doctor or seek medical care if you have worsened shortness of breath, cough, mucus production, fever, or chills. 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 Record these readings and bring a list with you to your primary care provider appointment. Monitor your blood pressure at home daily until your follow-up with your primary care provider. Call your doctor or go to the ER if your blood pressure becomes elevated Call your doctor or proceed to the emergency department if you have any additional worrisome signs or symptoms. Call 911 if you have any life-threatening symptoms. Medication information: Begin taking an antibiotic called cefdinir 2 times per day for 6 days and azithromycin once per day for 4 days. Make sure you complete this entire course of antibiotic, even if you begin to feel better. Hold off on taking lisinopril-hydrochlorothiazide until you have been seen by your primary care provider or received further instructions from them Follow-up information: Call your primary care provider tomorrow to schedule your hospital follow-up. You will need to have your blood pressure and kidney function monitored by your primary care provider. Patient Instructions: Antibiotic Form Patient Language: Telugu Stand Alone Forms: General Discharge Information Follow-up/Referrals: Master,Jeffery Oliver MD [Non-Staff] - 1 Week UNKNOWN,DOCTOR [Primary Care Provider] - 1 Week Discharge Medications: New cefdinir 300 mg capsule 300 mg PO Q12H 6 Days Qty: 12 0RF azithromycin 500 mg tablet 500 mg PO DAILY 4 Days Qty: 4 0RF Continued Janumet XR 100-1,000 mg tablet, ER multiphase 24 hr 1 tablet PO DAILY rosuvastatin 10 mg tablet 10 mg PO DAILY ergocalciferol (vitamin D2) 1,250 mcg (50,000 unit) capsule 1,250 mcg PO WEEKLY Patient Comments: TAKES ON SUNDAY (TOOK TODAY) dapagliflozin propanediol [Farxiga] 10 mg tablet 10 mg PO DAILY Held lisinopril-hydrochlorothiazide 20-25 mg tablet 1 tablet PO DAILY Hold Instructions: Hold until follow up with PCP Date of admission: 03/21/25 22:44 Primary Care Provider: UNKNOWN,DOCTOR Admitting Provider: Jules Galvez Attending physician on admission: Jules Galvez Condition: Stable Quality VTE Prophylaxis VTE prophylaxis: pharmacologic ordered
[2025-03-25 15:39] LABS: Pneumococcal Antigen Urine NOT DETECTED
== END 2025-03-22 11:35 | disposition home or self-care (01) ==
LOC: ANHED 23:04 → ANH3MEDSUR 03-22 10:38
PROVIDERS: Physician Assistant; Admitting Provider Internal Medicine; Emergency Provider Physician Assistant; Visit Provider Internal Medicine
DX: J18.9 Pneumonia, unspecified organism (principal); N17.9 Acute kidney failure, unspecified; E86.0 Dehydration; E11.65 Type 2 diabetes mellitus with hyperglycemia; I10 Essential (primary) hypertension; E78.5 Hyperlipidemia, unspecified; Z20.822 Contact with and (suspected) exposure to COVID-19; Z79.84 Long term (current) use of oral hypoglycemic drugs; Z79.899 Other long term (current) drug therapy
CPT/HCPCS: 36415; 71046; 80048; 80053; 81001; 82550; 82803; 82948; 83036; 83605; 83735; 84443; 85025; 85027; 86738; 87449; 87637; 87641; 87899; 96361; 96365; 96376; 99285; A9270; G0378; J0456; J0696; J7030